=== PATIENT | female | born 1990 | race Caucasian/White ===

== ENCOUNTER 2021-08-07 08:04 | Emergency (ER) | payer OTHER ==
[~2021-08-07] VITALS: Ht 160 cm; Wt 65.0 kg
--- NOTE | 2021-08-07 08:36 | PHYS DOC ---
Past History Past Medical History: Anxiety Additional Past Medical Histor: Seasonal allergies Past Surgical History: Cholecystectomy, Hysterectomy Smoking: Non-smoker Alcohol Use: Occasionally Drug Use: None General Adult EDM: Chief Complaint: Left ankle pain HPI: HPI: Patient is a 30 year old female who presents with left ankle pain. Patient reports walking down the [place] work last night at 11 PM and "rolling" her left ankle. Pain is located on the anterior lateral aspect of the left ankle. She reports increased swelling in the left ankle and cramping in her third through fifth digits on her left foot. She reports that she took ibuprofen which improved her pain. Patient was able to walk immediately following the injury and into the emergency room today. She has no other complaints at this time. Review of Systems: Review of Systems: Constitutional: Denies fever or chills Eyes: Denies redness or eye pain HENT: Denies nasal congestion or sore throat Respiratory: Denies cough or shortness of breath Cardiovascular: Denies chest pain or palpitations GI: Denies abdominal pain, nausea, or vomiting : Denies dysuria or hematuria Musculoskeletal: Reports moderate left ankle pain and mild swelling Integument: Denies rash or skin lesions Neurologic: Denies headache, focal weakness or sensory changes Complete systems were reviewed and found to be within normal limits, except as documented in this note. Physical Exam: PE: Constitutional: Well developed, well nourished, no acute distress, non-toxic appearance HENT: Normocephalic, atraumatic Eyes: PERRL, EOMI, conjunctiva normal, no discharge Skin: Warm, dry, no erythema, no rash Extremities: Tender left ankle with decreased range of motion. Mild edema over anterolateral aspect of left ankle. Blood flow distal to injury is intact. Neurologic: Alert and oriented X 3, normal motor function, normal sensory function, no focal deficits noted Psychologic: Affect normal, judgment normal EKG: EKG: [] Radiology/Procedures: Radiology/Procedures: [] Heart Score: C/O Chest Pain: N/A Course & Med Decision Making: Course & Med Decision Making Patient presents for left ankle pain after rolling her ankle last night at work. She was able to walk immediately after injury and into the ED today. Tenderness over lateral aspect of left ankle. No bone instability on physical exam the decision was made to not obtain imaging. Patient was instructed to RICE, and given ankle brace and crutches with instruction. Patient stable for discharge with outpatient follow-up with PCP. Discussed findings and plan with patient, who acknowledges understanding and agreement. Shankar Disclaimer: Shankar Disclaimer: This electronic medical record was generated, in whole or in part, using a voice recognition dictation system. Splinting Splinting : Location: Left ankle Pre-Made Type: ROSENDA bandage and ankle stirrup splint Pre-Proc Neuro Vasc Exam: normal Post-Proc Neuro Vasc Exam: normal, unchanged from pre-exam Departure Departure: Impression: Primary Impression: Ankle sprain Qualified Codes: S93.402A - Sprain of unspecified ligament of left ankle, initial encounter Disposition: HOME / SELF CARE / HOMELESS Condition: STABLE Referrals: PAMELA OCAMPO DO, [facility] (PCP) Patient Instructions: Ankle Sprain, [id number]-Dkgy, Crutch Use, [id number], RICE - Routine Care for Injuries, [id number] Additional Instructions: Ice area of discomfort 20 minutes on then leave off next 20 minutes. Repeat several times daily for the next few days. Use [id number] ibuprofen and or Tylenol for pain or discomfort. SHALOM LANE DO Aug 07, 2021 08:36
[2021-08-07 08:49] VITALS: BP 110/57
== END 2021-08-07 08:49 | disposition home or self-care (01) ==
LOC: ER 08:04
DX: S93.402A Sprain of unspecified ligament of left ankle, initial encounter (principal); X50.9XXA Other and unspecified overexertion or strenuous movements or postures, initial encounter; Y93.01 Activity, walking, marching and hiking; Y92.89 Other specified places as the place of occurrence of the external cause; Y99.8 Other external cause status
CPT/HCPCS: 29515; 99283